=== PATIENT | female | born 1960 | race Caucasian/White ===

== ENCOUNTER 2017-08-18 10:02 | Emergency (ER) | payer OTHER ==
[~2017-08-18] VITALS: Ht 154.9 cm; Wt 64.0 kg
[~2017-08-18 10:02] MED LIST: IBUP-974
[2017-08-18 10:12] VITALS: BP 170/78
--- NOTE | 2017-08-18 10:18 | NUR ---
DAUGHTER WANTS TO KNOW IF WE CAN GIVE HER MOTHER DIALYSIS IN THE ED. I SPOKE WITH DR. GRANT AND I EXPLAINED TO THE DAUGHTER THAT WE WOULD HAVE TO DO SOME LAB RESULTS AND EXAMS PRIOR TO AND THEN POSSIBLY ADMITTING THE PATIENT IF SHE MET CRITERIA. PATIENT LEFT WITHOUT BEING SEEN BY DR. GRANT. NO FURTHER CARE PROVIDED FOR PATIENT. DAUGHTER STATES "I'M GOING TO TAKE HER TO ANOTHER HOSPITAL, SHE REALLY NEEDS IT."
== END 2017-08-18 10:18 | disposition left against medical advice (07) ==
LOC: MED 10:02
DX: Z53.21 Procedure and treatment not carried out due to patient leaving prior to being seen by health care provider (principal)